=== PATIENT | female | born 1950 | race Caucasian/White ===

== ENCOUNTER 2016-11-30 13:57 | Emergency (ER) | payer SELFPAY ==
[~2016-11-30] VITALS: Ht 157.5 cm; Wt 66.0 kg
[~2016-11-30 13:57] MED LIST: ATEN-51 PO; ATEN50TA PO; HYDR25TA6 PO
[2016-11-30 14:01] VITALS: Ht 157.5 cm; Wt 66.0 kg
== END 2016-11-30 21:01 | disposition left against medical advice (07) ==
LOC: E/R 13:57
DX: Z53.21 Procedure and treatment not carried out due to patient leaving prior to being seen by health care provider (principal)

== ENCOUNTER 2017-04-11 20:32 | Emergency (ER) | END 2017-04-12 02:39 | disposition home or self-care (01) ==

== ENCOUNTER 2018-01-09 18:01 | Emergency (ER) | END 2018-01-09 19:25 | disposition home or self-care (01) ==

== ENCOUNTER 2018-05-02 20:58 | Emergency (ER) | payer SELFPAY ==
[~2018-05-02] VITALS: Ht 152.4 cm; Wt 66.4 kg
[~2018-05-02 20:58] MED LIST changes: +AMLO-218 PO; +CYCL10TA7 PO; +LOSA25TA12 PO; +MED4DP PO; +NAPR-985 PO
[2018-05-02 21:09] VITALS: BP 172/78; PULSE 65; RESP 18; Ht 152.4 cm; Wt 66.4 kg
== END 2018-05-03 00:21 | disposition left against medical advice (07) ==
LOC: E/R 20:58
DX: Z53.21 Procedure and treatment not carried out due to patient leaving prior to being seen by health care provider (principal)